=== PATIENT | male | born 1960 | race Caucasian/White ===

== ENCOUNTER 2024-03-01 19:05 | Emergency (ER) | payer OTHER ==
[2024-03-01] MEDS: cefTRIAXone 1 GM, Lidocaine 1% 2.1 ML IM ONE (22:13)
[2024-03-01] MEDS: Diphtheria,Pertussis(Acell),Tetanus Vaccine 0.5 ML Syringe IM ONE (22:14)
== END 2024-03-01 22:41 | disposition home or self-care (01) ==
LOC: JP.ED 19:05
DX: S61.452A Open bite of left hand, initial encounter (principal); S61.451A Open bite of right hand, initial encounter; S61.552A Open bite of left wrist, initial encounter; S61.551A Open bite of right wrist, initial encounter; L03.114 Cellulitis of left upper limb; L03.113 Cellulitis of right upper limb; Z23 Encounter for immunization; Z79.82 Long term (current) use of aspirin; Z79.4 Long term (current) use of insulin; Z79.899 Other long term (current) drug therapy; Z79.84 Long term (current) use of oral hypoglycemic drugs; Z88.6 Allergy status to analgesic agent; Z88.5 Allergy status to narcotic agent; Z88.0 Allergy status to penicillin; Z88.8 Allergy status to other drugs, medicaments and biological substances; W55.01XA Bitten by cat, initial encounter
CPT/HCPCS: 90471; 90715; 96372; 99283; J0696